=== PATIENT | female | born 1955 | race Caucasian/White ===

== ENCOUNTER 2016-10-03 15:30 | Emergency (ER) | payer OTHER ==
[2016-10-03 15:42] LABS: EOSINOPHIL COUNT 0.1 K/uL (0-0.3); HEMATOCRIT 31.4 % (36.0-46.0); IMMATURE GRANULOCYTE (%) 1.4 % (0.0-0.7); IMMATURE GRANULOCYTE COUNT 0.1 K/uL; INSTRUMENT ABS NEUTROPHIL CT 5.9 K/uL; LYMPHOCYTE COUNT 1.5 K/uL (1.0-2.8); MCH 32.6 PG (29.0-34.0); MCHC 32.8 G/DL (30.0-36.0); MCV 99.4 FL (83-99); MEAN PLAT.VOLUME 10.2 uM^3 (9.5-12.4); MONOCYTE (%) 8.7 % (3-12); MONOCYTE COUNT 0.7 K/uL (0-0.8); NEUTROPHIL (%) 71.1 % (45-76); NEUTROPHIL COUNT 5.9 K/uL (1.8-6.4); PLATELET COUNT 189 K/uL (156-360); RBC DIS.WIDTH-CV 13.7 % (11.8-14.6); RBC DIS.WIDTH-SD 50.5 % (39-53); RED BLOOD COUNT 3.16 M/uL (3.80-5.20); WHITE BLOOD COUNT 8.3 K/uL (4.1-10.2)
[2016-10-03 15:54] LABS: AMYLASE 86 IU/L (1-118); CHLORIDE 100 mEq/L (99-109); POTASSIUM 4.6 mEq/L (3.7-5.4); SODIUM 138 mEq/L (136-147)
[2016-10-03 15:56] LABS: GLUCOSE 127 mg/dL (70-99)
[2016-10-03 15:57] LABS: ANION GAP 16 MEQ/L (2-14)
[2016-10-03 15:59] LABS: SERUM ETHYL ALCOHOL < 10 mg/dL
[2016-10-03 16:00] LABS: GFR ESTIMATE (CALCULATED) 6 mL/min/
[2016-10-03 16:01] LABS: UREA NITROGEN (BUN) 84 mg/dL (9-23)
[2016-10-03 16:03] LABS: LIPASE 77 U/L (1.0-51.0)
== END 2016-10-03 19:47 | disposition short-term general hospital (02) ==
LOC: TRA
PROVIDERS: Ophthalmology Retina Specialist
DX: S20.211A Contusion of right front wall of thorax, initial encounter (principal); S27.321A Contusion of lung, unilateral, initial encounter; S82.841A Displaced bimalleolar fracture of right lower leg, initial encounter for closed fracture; S82.302B Unspecified fracture of lower end of left tibia, initial encounter for open fracture type I or II; V43.52XA Car driver injured in collision with other type car in traffic accident, initial encounter; Y92.411 Interstate highway as the place of occurrence of the external cause; S10.91XA Abrasion of unspecified part of neck, initial encounter; S39.012A Strain of muscle, fascia and tendon of lower back, initial encounter; S93.05XA Dislocation of left ankle joint, initial encounter; Z23 Encounter for immunization; N18.6 End stage renal disease
CPT/HCPCS: 70450; 71010; 71250; 72125; 72128; 72131; 73590; 73600; 73630; 74176; 80048; 81003; 82150; 83690; 85025; 86900; 86901; 90832; 93005; 99281; 99285; G0480; J1580; J2405; J3010; J7050